=== PATIENT | male | born 1995 | race Caucasian/White ===

== ENCOUNTER → 2016-07-22 | Outpatient (CLI) | payer OTHER ==
--- NOTE | 2016-07-24 06:03 | [facility] ---
[facility] NAME: ALAYNA KAPLAN [facility] REFERENCE #: [id number] : 1995 DATE OF VISIT: 07/22/2016 PRIMARY CARE: [facility]. CHIEF COMPLAINT: Followup of orthostatic intolerance. HISTORY: Alayna is seen in our [facility]. At one time he had common adolescent orthostatic intolerance. A common nearly normal variant of autonomic function in teenagers, associated with postural lightheadedness. He had a vasovagal faint induced with orthostatic tilt testing some years ago. I treated him with Florinef for salt retention and atenolol, which are often used for orthostatic intolerance and he had excellent response and resolution of his postural lightheadedness symptoms. He had a very normal echocardiogram study in January 2015. He has had very normal EKG in the past, including one in March 2015 with a QTC of 390. I last saw him in November 2015. At that time he was still taking some gabapentin for his postconcussion headaches. Since that time, he has done wonderfully and has weaned off all of his medicines. He has taken no atenolol or Florinef for more than one month and states that he runs 1-1/2 miles every day and works out at the gym and never feels faint or lightheaded. He no longer gets headaches. He pays good attention to excellent hydration and feels well. MEDICATIONS: None. ALLERGIES TO MEDICATIONS: SULFA. SOCIAL HISTORY: Lives with his mother, step-father and three younger brothers. He does not smoke. PAST MEDICAL/SURGICAL HISTORY: Tonsillectomy. SYSTEM REVIEW: Negative for general, vision, hearing, respiratory, GI, urinary, musculoskeletal, neurologic, developmental, skin or other. FAMILY HISTORY: His mother's maternal first cousin had a daughter who at age 21 in her sleep, stated to be from congestive heart failure. The father of that 21-year-old young woman who is the first cousin to Alayna's mother and it is stated that he had some kind of heart problem. The aunt of that man is the mother of my patient's mother and that aunt at 29 from complications of a heart operation, possibly heart valve or congenital. Mother has chronic lung disease. PHYSICAL EXAMINATION: Weight 171 pounds, height 71 inches, blood pressure 108/70. General exam is a very polite, very pleasant, delightful young man. He is fit and muscular. Color and perfusion are excellent. Dentition appears good. Thyroid not enlarged or nodular. Lungs clear bilateral. Precordial activity normal. Cardiac auscultation reveals no abnormal murmur, click or gallop. Abdomen is without hepatomegaly, splenomegaly, mass, or bruit. Distal pulses and femoral pulses are excellent. Gait and coordination are normal. IMPRESSION: There is no need to repeat an EKG or echocardiogram today. He has these tests in the past, which were perfectly normal. At this time he has zero symptoms and he has weaned off the medications he used in the past for his mild orthostatic intolerance and his migraine headaches. I know of no reason that he could not participate in vigorous physical training in the and at present he is tolerating vigorous physical training without any symptoms. He does not require restrictions of sports, exercise and he does not require antibiotic prophylaxis for oral procedures as he does not have any type of congenital heart lesion. I am discharging him from all pediatric cardiology followup and all cardiology followup. He does know to hydrate well to maintain his optimal performance. NUSRAT JIMENEZ MD [id number] PHY#: [id number] ID: [id number] JOB#: [id number] ACCT: [id number] cc:NUSRAT JIMENEZ MD [facility], Polly Leo
== END ==
LOC: PC 08:53
PROVIDERS: ATTEND Pediatrics Pediatric Cardiology
DX: R55 Syncope and collapse (principal)